=== PATIENT | male | born 1940 | race Caucasian/White ===

== ENCOUNTER 2019-04-17 16:43 | Observation (INO) | payer MEDICARE, OTHER ==
[2019-04-17] MEDS ORDERED: Sodium Chloride 0.9% 10 ML Syringe FLUSH PRN (18:11)
[2019-04-17 18:55] LABS: ANION GAP 13.2; CHLORIDE,CL 105 mmol/L (101-111); SODIUM,NA 135 mmol/L (135-145)
[2019-04-17] MEDS ORDERED: Sodium Chloride 0.9% 1,000 ML IV SCH ×2 (19:30→20:45)
[2019-04-17] MEDS ORDERED: Acetaminophen 325 MG Tab PO PRN (20:34)
[2019-04-17] MEDS ORDERED: Ondansetron 4 MG Tab.DIS PO PRN (20:34)
[2019-04-17] MEDS: Pantoprazole 40 MG Tab.CR PO SCH (21:12)
[2019-04-17] MEDS: Heparin Sodium 5,000 Units/ML Vial SUBCUT SCH (21:12)
--- NOTE | 2019-04-17 23:04 | HP ---
CHIEF COMPLAINT: Increasing weakness, tiredness, and diarrhea. HISTORY OF PRESENTING ILLNESS: Mr. Horacio Rice is a 78-year-old male with medical history significant for hypertension, hyperlipidemia, history of cerebrovascular accident in the past in 2000, gastroesophageal reflux disease, history of depression, obesity, history of tobacco use in the past, and benign prostatic hypertrophy. He presented to the ER with complaints of increasing weakness and tiredness with dizziness and noted to have diarrhea in the last few days needing admission to the hospital. At this time, the patient claims that the diarrhea has been going on since Thursday. Especially in the last 5 days, he had at least 3 episodes of loose stools each day, which were watery in nature, and finally he took some Imodium from yesterday and his diarrhea seems to be improved. He denies any sick contacts. No history of recent travel. No exposure to food poisoning as per the patient. The patient also complains of having dizziness and weakness on ambulation. He denies any chest pain. No shortness of breath. No abdominal pain. No fever. No chills. No cough. No sputum. No sick contacts. No other family members sick at home. The patient denied any history of chest pains on exertion. No history of dyspnea on exertion. No history of orthopnea or paroxysmal nocturnal dyspnea. The patient denied any history of hematemesis, hematochezia, or melenic stools. Normal bowel and bladder habits otherwise. REVIEW OF SYSTEMS: A complete review of systems including skin, ear, nose, throat, cardiovascular system, respiratory system, gastrointestinal system, genitourinary system, hematology, oncology, neurology, allergy, immunology, and constitutional were all evaluated and were negative except for the above-said notes. PAST MEDICAL HISTORY: Significant for hypertension, hyperlipidemia, gastroesophageal reflux disease, history of cerebrovascular accident in the past, obesity, and history of tobacco use. PAST SURGICAL HISTORY: None as per the patient. FAMILY HISTORY: Significant for hypertension in his father. SOCIAL HISTORY: The patient has smoking in the past, but quit many years back. History of occasional alcohol intake. ALLERGIES: The patient noted to have allergies to Crestor, Lipitor, and statin. HOME MEDICATIONS: Include: 1. Zoloft 100 mg daily. 2. Enalapril 20 mg daily. 3. Doxazosin 4 mg daily. 4. Plavix 75 mg daily. 5. Protonix 40 mg daily. PHYSICAL EXAMINATION: Vital Signs: Temperature of 98.9, pulse of 90, blood pressure 147/77, respiratory rate of 16, and saturating at 96% on room air. General Appearance: The patient is well oriented to time, place, and person. Follows commands spontaneously. Cardiovascular System: S1 and S2 heard with normal intensity. No gallops. Respiratory System: Clear to auscultation bilaterally. No wheezes. No crepitations. Abdomen: Soft. Bowel sounds positive. Nontender. No rigidity. Extremities: No edema in bilateral lower extremities. Neurologic: No gross focal neurological deficits. LABORATORY DATA: WBC 15.7, hemoglobin 16.7, hematocrit 49.1, and platelet count 450. INR 1.1. Sodium 135, potassium 4.2, chloride 105, bicarbonate 21, BUN 19 creatinine 1.1, glucose 85, AST 22, ALT 24, and alkaline phosphatase 54. Troponin less than 0.02. ASSESSMENT: 1. Increasing weakness, tiredness, and dizziness secondary to dehydration. 2. Dehydration from diarrhea. 3. Diarrhea, exact etiology not clear, resolved with Imodium. 4. Hypertension. 5. Hyperlipidemia. 6. Gastroesophageal reflux disease. 7. History of cerebrovascular accident in the past. 8. Generalized debility. PLAN: 1. Generalized weakness with debility. The patient had this diarrhea for the last 5 days, which has lead to dehydration, weakness, tiredness, and dizziness. The patient is at risk for fall. He will be admitted to the hospital. We will keep him hydrated with IV fluids. We will recheck a basic metabolic panel in the a.m. We will closely follow. 2. Diarrhea, exact etiology not clear. It seems to be resolved with Imodium. We will closely follow. If he has more stools, then one might consider getting a stool for culture. He denies any hematemesis, hematochezia, or melenic stools. 3. Leukocytosis. This could be reactive in nature. We will obtain urinalysis. We will follow the chest x-ray report. 4. Hypertension. The patient's blood pressure seems to be in acceptable range. Continue with current antihypertensive medication. He is noted to be on enalapril. Continue the same. 5. DVT prophylaxis. We will have him on heparin for DVT prophylaxis. 6. Code status. The patient wants to be full code. 7. Discussed with Dr. Holland, ER physician, regarding the plan of care. Reviewed the labs and medications. Reviewed the old charts. MOD /[id number]
[2019-04-18] MEDS: Heparin Sodium 5,000 Units/ML Vial SUBCUT SCH (05:38)
[2019-04-18] MEDS: Pantoprazole 40 MG Tab.CR PO SCH (05:38)
[2019-04-18 06:46] LABS: ANION GAP 14.8; CHLORIDE,CL 107 mmol/L (101-111); SODIUM,NA 133 mmol/L (135-145)
--- NOTE | 2019-04-18 07:02 | EDM.PDOC ---
Scribed by Mily Ying 04/18/19 0702 for Vicky Can NP ED HPI GENERAL MEDICAL PROBLEM - General Chief Complaint: Gastrointestinal Problem Stated Complaint: BODY ACHES, DIARRHEA SINCE THURSDAY Time Seen by Provider: 04/17/19 18:00 Source of Information: Reports: Patient, RN, RN Notes Reviewed History Limitations: Reports: No Limitations - History of Present Illness INITIAL COMMENTS - FREE TEXT/NARRATIVE: Patient presents to ER with complaint of diarrhea since Thursday a.m. At 0500 he took Imodium yesterday which helped but he has felt run down and fatigued. He has pain in his legs and back 07/09 but took nothing for it. No falls or trauma. He has had body aches, chills, diarrhea and vomiting the first day. He has had no fever. Onset: Gradual Onset Date: 04/13/19 Duration: Constant Location: Reports: Generalized Quality: Reports: Ache Severity: Moderate Improves with: Reports: None Worsens with: Reports: None Associated Symptoms: Reports: No Other Symptoms - Related Data Allergies Allergy/AdvReac Type Severity Reaction Status Date / Time No Known Allergies Allergy Verified 04/17/19 19:54 Home Meds: Home Meds Clopidogrel Bisulfate [Clopidogrel] 75 mg PO DAILY 04/17/19 [History] Doxazosin [Doxazosin Mesylate] 4 mg PO DAILY 04/17/19 [History] Enalapril [Vasotec] 20 mg PO DAILY 04/17/19 [History] Pantoprazole [ProTONIX IV] 40 mg PO DAILY 04/17/19 [History] Sertraline [Zoloft] 100 mg PO DAILY 04/17/19 [History] Past Medical History Neurological History: Reports: CVA (18 years ago) ED ROS GENERAL - Review of Systems Review Of Systems: ROS reveals no pertinent complaints other than HPI. ED EXAM, GENERAL - Physical Exam Exam: See Below Exam Limited By: No Limitations General Appearance: Alert, WD/WN, No Apparent Distress Eye Exam: Bilateral Eye: EOMI, Normal Inspection, PERRL Ears: Normal External Exam, Normal Canal, Hearing Grossly Normal, Normal TMs Nose: Normal Inspection, Normal Mucosa, No Blood Throat/Mouth: Normal Inspection, Normal Lips, Normal Teeth, Normal Gums, Normal Oropharynx, Normal Voice, No Airway Compromise Head: Atraumatic, Normocephalic Neck: Normal Inspection, Supple, Non-Tender, Full Range of Motion Respiratory/Chest: No Respiratory Distress, Lungs Clear, Normal Breath Sounds, No Accessory Muscle Use, Chest Non-Tender Cardiovascular: Other (diminished crackles) GI/Abdominal: Normal Bowel Sounds, Soft, Non-Tender, No Organomegaly, No Distention, No Abnormal Bruit, No Mass (Male) Exam: Deferred Rectal (Males) Exam: Deferred Back Exam: Normal Inspection, Full Range of Motion, NT Extremities: Normal Inspection Neurological: Alert, Oriented, CN II-XII Intact, Normal Cognition, Normal Gait, Normal Reflexes, No Motor/Sensory Deficits Psychiatric: Normal Affect, Normal Mood Skin Exam: Diaphoretic Lymphatic: No Adenopathy Course - Vital Signs Last Recorded V/S: Last Vital Signs Temp 98.9 F 04/17/19 19:44 Pulse 90 04/17/19 19:44 Resp 16 04/17/19 19:44 BP 147/77 H 04/17/19 19:44 Pulse Ox 96 04/17/19 19:44 - Orders/Labs/Meds Orders: Active Orders 24 hr Category Date Time Status EKG Documentation Completion [RC] STAT Care 04/17/19 18:12 Active Peripheral IV Care [RC] . DIRECTED Care 04/17/19 18:13 Active CULTURE BLOOD [BC] Stat Lab 04/17/19 18:20 Results CULTURE BLOOD [] Stat Lab 04/17/19 18:25 Received Sodium Chloride 0.9% [Saline Flush] Med 04/17/19 18:11 Active 10 ml FLUSH ASDIRECTED PRN Blood Culture x2 Reflex Set [OM.PC] Stat Oth 04/17/19 18:12 Ordered Peripheral IV Insertion Adult [OM.PC] Stat Oth 04/17/19 18:12 Ordered Medication Orders Acetaminophen (Tylenol) 650 mg PO Q4H PRN PRN Reason: Pain (Mild 1-3)/fever Clopidogrel Bisulfate (Plavix) 75 mg PO DAILY JAZZY Doxazosin Mesylate (Cardura) 4 mg PO DAILY JAZZY Enalapril Maleate (Vasotec) 20 mg PO DAILY JAZZY Heparin Sodium (Porcine) (Heparin Sodium) 5,000 units SUBCUT Q8HR JAZZY Last Admin: 04/18/19 05:38 Dose: 5,000 units Admin: 04/17/19 21:12 Dose: 5,000 units Sodium Chloride (Normal Saline) 1,000 mls @ 75 mls/hr IV ASDIRECTED JAZZY Last Admin: 04/18/19 04:32 Dose: 75 mls/hr Ondansetron HCl (Zofran Odt) 4 mg PO Q4H PRN PRN Reason: nausea, able to take PO Pantoprazole Sodium (Protonix) 40 mg PO ACBRK JAZZY Last Admin: 04/18/19 05:38 Dose: 40 mg Admin: 04/17/19 21:12 Dose: 40 mg Sertraline HCl (Zoloft) 100 mg PO DAILY [facility] Sodium Chloride (Saline Flush) 10 ml FLUSH ASDIRECTED PRN PRN Reason: Keep Vein Open Last Admin: 04/17/19 18:56 Dose: 10 ml Labs: Laboratory Tests 04/17/19 04/17/19 04/17/19 Range/Units 18:20 18:20 18:20 WBC 15.7 H (5.0-10.0) 10^3/uL RBC 5.34 (4.6-6.2) 10^6/uL Hgb 16.7 (14.0-18.0) g/dL Hct 49.1 (40.0-54.0) % MCV 91.9 (80-100) fL MCH 31.3 (27.0-34.0) pg MCHC 34.0 (33.0-35.0) g/dL Plt Count 450 (150-450) 10^3/uL Neut % (Auto) 83.3 H (42.2-75.2) % Lymph % (Auto) 6.6 L (20.5-50.1) % [place] % (Auto) 8.5 H (2-8) % Eos % (Auto) 1.5 (1.0-3.0) % Baso % (Auto) 0.1 (0.0-1.0) % PT 10.7 (9.0-12.0) SEC INR 1.1 (0.9-1.2) Sodium 135 (135-145) mmol/L Potassium 4.2 (3.6-5.0) mmol/L Chloride 105 (101-111) mmol/L Carbon Dioxide 21.0 (21.0-31.0) mmol/L Anion Gap 13.2 BUN 19 H (7-18) mg/dL Creatinine 1.1 (0.6-1.3) mg/dL Est Cr Clr Drug Dosing 55.27 mL/min Estimated GFR (MDRD) > 60 BUN/Creatinine Ratio 17.27 Glucose 85 (74-105) mg/dL Lactic Acid (0.5-2.2) mmol/L Calcium 9.0 (8.4-10.2) mg/dl Total Bilirubin 1.7 H (0.2-1.0) mg/dL AST 22 (10-42) IU/L ALT 24 (10-60) IU/L Alkaline Phosphatase 54 (42-121) IU/L Troponin I < 0.02 (0.00-0.02) ng/ml Total Protein 7.9 (6.7-8.2) g/dl Albumin 4.0 (3.2-5.5) g/dl Globulin 3.9 Albumin/Globulin Ratio 1.03 Urine Color (YELLOW) Urine Appearance (CLEAR) Urine pH (5.0-9.0) Ur Specific [place] (1.005-1.030) Urine Protein (NEGATIVE) Urine Glucose (UA) (NEGATIVE) Urine Ketones (NEGATIVE) Urine Occult Blood (NEGATIVE) Urine Nitrite (NEGATIVE) Urine Bilirubin (NEGATIVE) Urine Urobilinogen (0.2-1.0) mg/dL Ur Leukocyte Esterase (NEGATIVE) 04/17/19 04/17/19 Range/Units 18:20 20:25 WBC (5.0-10.0) 10^3/uL RBC (4.6-6.2) 10^6/uL Hgb (14.0-18.0) g/dL Hct (40.0-54.0) % MCV (80-100) fL MCH (27.0-34.0) pg MCHC (33.0-35.0) g/dL Plt Count (150-450) 10^3/uL Neut % (Auto) (42.2-75.2) % Lymph % (Auto) (20.5-50.1) % [place] % (Auto) (2-8) % Eos % (Auto) (1.0-3.0) % Baso % (Auto) (0.0-1.0) % PT (9.0-12.0) SEC INR (0.9-1.2) Sodium (135-145) mmol/L Potassium (3.6-5.0) mmol/L Chloride (101-111) mmol/L Carbon Dioxide (21.0-31.0) mmol/L Anion Gap BUN (7-18) mg/dL Creatinine (0.6-1.3) mg/dL Est Cr Clr Drug Dosing mL/min Estimated GFR (MDRD) BUN/Creatinine Ratio Glucose (74-105) mg/dL Lactic Acid 0.9 (0.5-2.2) mmol/L Calcium (8.4-10.2) mg/dl Total Bilirubin (0.2-1.0) mg/dL AST (10-42) IU/L ALT (10-60) IU/L Alkaline Phosphatase (42-121) IU/L Troponin I (0.00-0.02) ng/ml Total Protein (6.7-8.2) g/dl Albumin (3.2-5.5) g/dl Globulin Albumin/Globulin Ratio Urine Color Yellow (YELLOW) Urine Appearance Clear (CLEAR) Urine pH 5.5 (5.0-9.0) Ur Specific [place] 1.025 (1.005-1.030) Urine Protein Negative (NEGATIVE) Urine Glucose (UA) Negative (NEGATIVE) Urine Ketones Negative (NEGATIVE) Urine Occult Blood Negative (NEGATIVE) Urine Nitrite Negative (NEGATIVE) Urine Bilirubin Negative (NEGATIVE) Urine Urobilinogen 0.2 (0.2-1.0) mg/dL Ur Leukocyte Esterase Negative (NEGATIVE) Meds: Medications Generic Name Dose Route Start Last Admin Trade Name Freq PRN Reason Stop Dose Admin Acetaminophen 650 mg 04/17/19 20:34 Tylenol PO Q4H PRN Pain (Mild 1-3)/fever Clopidogrel Bisulfate 75 mg 04/18/19 09:00 Plavix PO DAILY [facility] Doxazosin Mesylate 4 mg 04/18/19 09:00 Cardura PO DAILY [facility] Enalapril Maleate 20 mg 04/18/19 09:00 Vasotec PO DAILY [facility] Heparin Sodium (Porcine) 5,000 units 04/17/19 22:00 04/18/19 05:38 Heparin Sodium SUBCUT 5,000 units Q8HR JAZZY Administration Sodium Chloride 1,000 mls @ 75 mls/hr 04/17/19 20:45 04/18/19 04:32 Normal Saline IV 75 mls/hr ASDIRECTED JAZZY Administration Ondansetron HCl 4 mg 04/17/19 20:34 Zofran Odt PO Q4H PRN nausea, able to take PO Pantoprazole Sodium 40 mg 04/17/19 21:00 04/18/19 05:38 Protonix PO 40 mg ACBRK JAZZY Administration Sertraline HCl 100 mg 04/18/19 09:00 Zoloft PO DAILY JAZZY Sodium Chloride 10 ml 04/17/19 18:11 04/17/19 18:56 Saline Flush FLUSH 10 ml ASDIRECTED PRN Administration Keep Vein Open Discontinued Medications Generic Name Dose Route Start Last Admin Trade Name Freq PRN Reason Stop Dose Admin Sodium Chloride 1,000 mls @ 200 mls/hr 04/17/19 19:30 04/17/19 19:22 Normal Saline IV 200 mls/hr ASDIRECTED JAZZY Administration Departure - Departure Time of Disposition: 19:49 Disposition: Refer to Observation Condition: Fair Clinical Impression: Gastroenteritis - Discharge Information *PRESCRIPTION DRUG MONITORING PROGRAM REVIEWED*: No *COPY OF PRESCRIPTION DRUG MONITORING REPORT IN PATIENT YOANNA: No - My Orders Last 24 Hours: My Active Orders 04/17/19 18:11 Sodium Chloride 0.9% [Saline Flush] 10 ml FLUSH ASDIRECTED PRN 04/17/19 18:12 EKG Documentation Completion [RC] STAT Blood Culture x2 Reflex Set [OM.PC] Stat Peripheral IV Insertion Adult [OM.PC] Stat 04/17/19 18:13 Peripheral IV Care [RC] . DIRECTED 04/17/19 18:20 CULTURE BLOOD [BC] Stat 04/17/19 18:25 CULTURE BLOOD [BC] Stat - Assessment/Plan Last 24 Hours: My Active Orders 04/17/19 18:11 Sodium Chloride 0.9% [Saline Flush] 10 ml FLUSH ASDIRECTED PRN 04/17/19 18:12 EKG Documentation Completion [RC] STAT Blood Culture x2 Reflex Set [OM.PC] Stat Peripheral IV Insertion Adult [OM.PC] Stat 04/17/19 18:13 Peripheral IV Care [RC] . DIRECTED 04/17/19 18:20 CULTURE BLOOD [BC] Stat 04/17/19 18:25 CULTURE BLOOD [BC] Stat I have read and agree with the documentation that has been completed regarding this visit. By signing this record, I attest that the documentation was completed in my physical presence and is an accurate record of the encounter.
[2019-04-18] MEDS ORDERED: Doxazosin 2 MG Tab PO SCH (09:00)
[2019-04-18] MEDS ORDERED: Sertraline 50 MG Tab PO SCH (09:00)
[2019-04-18] MEDS ORDERED: Clopidogrel 75 MG Tab PO SCH (09:00)
--- NOTE | 2019-04-18 14:57 | DISCH ---
ADMITTING DIAGNOSES: 1. Generalized weakness with debility. 2. Dehydration from diarrhea. 3. History of cerebrovascular accident with right-sided hemiparesis. DISCHARGE DIAGNOSES: 1. Increasing weakness and tiredness, resolved. 2. Dehydration, resolved with IV fluids. 3. Diarrhea, resolved. 4. Right-sided hemiparesis with gait disturbance from previous cerebrovascular accident. HISTORY OF PRESENTING ILLNESS: Mr. Dwayne Leonard is a 78-year-old male with a medical history significant for hypertension, hyperlipidemia, history of cerebrovascular accident in the past resulting in right-sided weakness with hemiparesis, gastroesophageal reflux disease, history of depression, and obesity, admitted to the hospital with complaints of increasing weakness, tiredness, and dizziness from having diarrhea. The patient's diarrhea got resolved. He was noted to be dehydrated at the time of admission, requiring IV fluids. He responded well to the treatment. He wanted to be discharged home. He might benefit from outpatient physical therapy. He is advised to follow with his primary care physician in next 1 week of time. DISCHARGE MEDICATIONS: Include Plavix 75 mg daily, doxazosin 4 mg daily, enalapril 20 mg daily, and Zoloft 100 mg daily. PHYSICAL EXAMINATION ON THE DAY OF DISCHARGE: Vital Signs: Temperature of 99.2, pulse of 62, blood pressure of 127/78, respiratory rate of 20, saturating at 95% on room air. General Appearance: The patient is well oriented to time, place, and person. Follows commands spontaneously. Cardiovascular System: S1 and S2 heard with normal intensity. No gallops. Respiratory System: Clear to auscultation bilaterally. No wheeze. No crepitations. Abdomen: Soft. Bowel sounds positive. Nontender. No rigidity. Extremities: No edema in bilateral lower extremities. Neurology: Right-sided weakness noted from previous CVA. CONDITION ON ADMISSION: Poor. CONDITION ON DISCHARGE: Stable. DISPOSITION: Discharged to home. ACTIVITY: As tolerated. DIET: Cardiac healthy diet. FOLLOWUP: Follow with primary care physician in next 1 week of time. [facility] /[id number]
== END 2019-04-18 12:50 | disposition home or self-care (01) ==
LOC: DL.ED 16:43 → UNDOADMOB 19:33 → DL.MS 19:33
PROVIDERS: ADMIT Internal Medicine; ATTEND Internal Medicine
DX: R53.1 Weakness (principal); R19.7 Diarrhea, unspecified; E86.0 Dehydration; G81.91 Hemiplegia, unspecified affecting right dominant side; R26.9 Unspecified abnormalities of gait and mobility; I10 Essential (primary) hypertension; E78.5 Hyperlipidemia, unspecified; K21.9 Gastro-esophageal reflux disease without esophagitis; R53.81 Other malaise; Z86.73 Personal history of transient ischemic attack (TIA), and cerebral infarction without residual deficits; Z87.891 Personal history of nicotine dependence; Z88.8 Allergy status to other drugs, medicaments and biological substances
CPT/HCPCS: 36415; 71045; 80048; 80053; 81003; 83605; 84484; 85025; 85027; 85610; 87040; 87804; 93005; 99284; A9270; J1644; J7030; 96360; 96361; 96372; G0378